=== PATIENT | female | born 1955 | race Caucasian/White ===

== ENCOUNTER → 2016-09-17 | Outpatient (CLI) | payer MEDICARE, OTHER ==
[~2016-09-17] MED LIST: AUGMENTIN400 MG PO; CARBAMAZEPINE PO; CELEBREX PO; DESYREL100 MG PO; FLEXERIL PO; HYDROCODON-ACE1 EAC9 PO; HYDROXYZINE PO; LISINOPRIL PO; LISINOPRIL-HCTZ1 T16 PO; LISINOPRIL/HCTZ PO; NAPROSYN500 MG PO; NICOTINE TRANSD21 MG EXT; NORVASC PO; NORVASC10 MG PO; PRAVACHOL PO; PRAVASTATIN PO; PREDNISONE; PRILOSEC PO; PRILOSEC20 MG PO; PROAIR HFA INH; PROAIR HFA8.5 GM; ROBITUSSIN A-C S5 ML; SEROQUEL PO; SEROQUEL400 MG PO; SPIRIVA18 MCG INH; SYMBICORT INH; TEGRETOL PO; TRAZODONE PO; VICODIN 5/1 TAB 5/50 PO; ZITHROMAX; [UNRECOGNIZED DRUG - REMARK]
--- NOTE | ~2016-09-17 | CT57 ---
[facility] A Service of [facility] & [facility] RADIOLOGY TEXT RESULTS PATIENT: VICTOR HUGO BECERRA LOCATION: [facility] : 51 UNIT #: [id number] AGE: [address]: Luca Metz MD SEX: F ORDER DR: [id number] [facility] [address] [place], [place] [address] [id number] O MR#: [id number] [facility] #: [id number] NAME: VICTOR HUGO BECERRA. : 1955 SEX: F STUDY DATE/TIME: 09/17/2016 14:08 UNIT: [facility] ROOM: STUDY DESCRIPTION: CT Chest Wo Cont Attending Physician: Luca Metz M.D. Referring Physician: Luca Metz M.D. Ordering Physician: Luca Metz M.D. Primary Care Physician: Esequiel Cagle M.D. MEDICAL IMAGING REPORT This report is preliminary unless electronic signature is present EXAM CT of the chest without contrast HISTORY Pain at the level of the lower ribs for 1 year, getting worse. Patient also reports constant cough for 3-[address] images were obtained from the thoracic inlet through the dome of the diaphragm. No intravenous contrast material administered. This CT exam was performed with one or more of the following radiation dose reduction techniques: automatic exposure control, adjustment of mA and/or kV according to patient size, and iterative reconstruction. FINDINGS This patient has a 5 mm nodule identified within the right upper lobe which has been unchanged since September of 2014 and this is benign. There is some mild ground-glass infiltrates seen within the right upper lobe which are nonspecific but could be infectious or inflammatory in nature. No additional infiltrates are seen. Patient does have stable aneurysmal dilatation of the ascending thoracic aorta measuring up to 4.2 cm, previously 4.1 cm. I do not see any new pulmonary nodules or masses. Mediastinal lymph nodes do not appear pathologically enlarged. Coronary artery calcifications. There is a small hiatal hernia. Gallbladder is surgically absent. Review of bony windows demonstrates thoracic scoliosis with convexity to the right. No aggressive osseous abnormalities are seen. Patient does have a nodule in each breast. The 1 on the right measures about a centimeter, while the 1 on the left measures about 9 mm in size. [facility] A Service of [facility] RADIOLOGY TEXT RESULTS PATIENT: VICTOR HUGO BECERRA LOCATION: [facility] : 51 UNIT #: [id number] AGE: [address]: Luca Metz MD SEX: F ORDER DR: Both of these were actually present in September of 2014 and have not significantly changed. There is some tortuosity of the thoracic aorta. IMPRESSION 1. No definite acute findings are identified to account the patient's symptomatology. 2. Stable aneurysmal dilatation of the ascending thoracic aorta measuring up to 4.2 cm. 3. Stable nodules identified within both breasts. I suspect these are probably benign given the stability since September 2014. Certainly, they would be better assessed with mammography if not previously performed. 4. Subtle ground-glass infiltrate identified within the right upper lobe. This may reflect an area of some evolving fibrotic change. No discrete infiltrate or nodule is identified, although a 5 mm nodule within the right upper lobe again is stable. Please see the body of the report for any other additional incidental findings. Dictated by... Glory Parker M.D. THIS IS AN ELECTRONICALLY VERIFIED REPORT Glory Parker M.D. at 09/18/2016 4:46 PM AFF/pcl TD: 09/17/2016 21:22 JOB #: [id number] MEDICAL IMAGING REPORT Page 1 of 1 COPY
== END | disposition home or self-care (01) ==
LOC: CCAT 13:13
DX: J18.9 Pneumonia, unspecified organism (principal); I71.2 Thoracic aortic aneurysm, without rupture; N63 Unspecified lump in breast; R91.8 Other nonspecific abnormal finding of lung field
CPT/HCPCS: 71250

== ENCOUNTER 2016-12-07 14:04 | Emergency (ER) | payer MEDICARE, OTHER ==
--- NOTE | ~2016-12-07 | CT4 ---
[facility] A Service [facility] RADIOLOGY TEXT RESULTS PATIENT: VICTOR HUGO BECERRA LOCATION: SED : 51 UNIT #: [id number] AGE: [address]: Keith Pool MD SEX: F ORDER DR: [id number] [place] [id number] E MR#: [id number] Acc #: [id number] NAME: VICTOR HUGO BECERRA. : 1955 SEX: F STUDY DATE/TIME: 12/07/2016 15:18 UNIT: SED ROOM: STUDY DESCRIPTION: CT Abd and Pelv Wo Cont Attending Physician: Keith Pool M.D. Ordering Physician: Keith Pool M.D. Primary Care Physician: Esequiel Cagle M.D. MEDICAL IMAGING REPORT This report is preliminary unless electronic signature is present. EXAM CT of the abdomen and pelvis without contrast. INDICATIONS Abdominal pain, low back pain for 3 days. Suspected kidney stone. COMPARISON 12/02/2006 TECHNIQUE Axial 3 mm images were obtained through the abdomen and pelvis without IV or oral contrast. This CT exam was performed with one or more of the following radiation dose reduction techniques: automatic exposure control, adjustment of mA and/or kV according to patient size, and iterative reconstruction. FINDINGS There is significant scoliosis in the lumbar spine. The gallbladder has been removed. The spleen, pancreas, adrenal glands and kidneys are normal. Aorta is normal in size. The right colon has been removed. The rest of the bowel appears normal. The uterus and adnexal regions are normal. The bladder is normal. IMPRESSION 1. No urinary stones or obstruction are identified. 2. Scoliosis. 3. Prior cholecystectomy. Dictated by... Domo Sheriff M.D. [facility] A Service [facility] RADIOLOGY TEXT RESULTS PATIENT: VICTOR HUGO BECERRA LOCATION: SED : 51 UNIT #: [id number] AGE: [address]: Keith Pool MD SEX: F ORDER DR: THIS IS AN ELECTRONICALLY VERIFIED REPORT Domo Sheriff M.D. at 12/08/2016 6:07 AM Annabelle TD: 12/07/2016 21:37 JOB #: [id number] MEDICAL IMAGING REPORT Page 1 of 1
[~2016-12-07 14:04] MED LIST changes: -CARBAMAZEPINE PO; -CELEBREX PO; -HYDROXYZINE PO; -LISINOPRIL/HCTZ PO; -NORVASC PO; -PRAVASTATIN PO; -PRILOSEC PO; -PROAIR HFA INH; -SEROQUEL PO; -SYMBICORT INH; -TRAZODONE PO
[2016-12-07] MEDS ORDERED: CELEBREX PO (14:26)
[2016-12-07] MEDS ORDERED: CARBAMAZEPINE PO (14:26)
[2016-12-07] MEDS ORDERED: LISINOPRIL/HCTZ PO (14:27)
[2016-12-07] MEDS ORDERED: HYDROXYZINE PO (14:27)
[2016-12-07] MEDS ORDERED: NORVASC PO (14:27)
[2016-12-07] MEDS ORDERED: PROAIR HFA INH (14:28)
[2016-12-07] MEDS ORDERED: PRAVASTATIN PO (14:28)
[2016-12-07] MEDS ORDERED: PRILOSEC PO (14:28)
[2016-12-07] MEDS ORDERED: TRAZODONE PO (14:29)
[2016-12-07] MEDS ORDERED: SEROQUEL PO (14:29)
[2016-12-07] MEDS ORDERED: SYMBICORT INH (14:29)
[2016-12-07 15:05] LABS: MICRO INDICATED? YES; URINE APPEARANCE CLEAR; URINE BILIRUBIN NEG (NEG); URINE BLOOD 2+ (NEG); URINE COLOR YELLOW; URINE GLUCOSE NEG (NORM); URINE KETONE NEG (NEG); URINE LEUKOCYTE ESTERASE TRACE (NEG); URINE NITRATE NEG (NEG); URINE PH 5.5 (5-8); URINE PROTEIN NEG (NEG); URINE SPECIFIC GRAVITY 1.015 (1.003-1.035); URINE UROBILINOGEN 0.2 MG/DL (NORM)
[2016-12-07 15:05] LABS: BASOPHIL# 0.1 X10e3 (0-0.3); BASOPHIL% 0.6 % (0-2.5); DIFF IND NO; EOSINOPHIL# 0.1 X10e3 (0-0.7); EOSINOPHIL% 1.3 % (0.0-7.0); HEMATOCRIT 41.1 % (35.0-45.0); LYMPHOCYTE# 2.9 X10e3 (1.0-3.5); LYMPHOCYTE% 32.3 % (17.0-45.0); MEAN CELL VOLUME 96.1 FL (83-96); MEAN CORPUSCULAR HEMOGLOBIN 32.8 PG (28-34); MEAN CORPUSCULAR HGB CONC 34.1 g/dL (30-36); MONOCYTE# 0.5 X10e3 (0-1.0); MONOCYTE% 5.4 % (3.0-12.0); NEUTROPHIL# 5.5 X10e3 (1.5-7.1); NEUTROPHIL% 60.4 % (40-75); PLATELET COUNT 348 X10e3 (140-420); RED BLOOD COUNT 4.27 X10e (3.90-5.30); RED CELL DISTRIBUTION WIDTH 13.5 % (11.0-15.5); WHITE BLOOD COUNT 9.1 X10e3 (4.0-10.5)
[2016-12-07 15:12] LABS: CULTURE INDICATED? NO; URINE BACTERIA NEG (NEG); URINE RBC 0-2 /[HPF] (0-2); URINE SQUAMOUS EPITHELIAL CELL OCCAS /[HPF]; URINE WBC 0-2 /[HPF] (0-5)
[2016-12-07 15:26] LABS: ALBUMIN SERUM 4.1 g/dL (3.5-5.0); ALKALINE PHOSPHATASE 63 U/L (32-92); ALT (SGPT) 15 U/L (10-40); AST (SGOT) 16 U/L (10-42); BILIRUBIN,TOTAL 0.5 mg/dL (0.2-2.0); BLOOD UREA NITROGEN 12 mg/dL (9-23); BUN/CREATININE RATIO 13.33; CALCIUM SERUM 8.8 mg/dL (8.4-10.2); CARBON DIOXIDE 32 mmol/L (22-31); CHLORIDE 99 mmol/L (100-111); CREATININE SERUM 0.9 mg/dL (0.6-1.4); GLOM FILT RATE Estimated 68.1 mL/min (>60); GLUCOSE FASTING 94 mg/dL (70-110); POTASSIUM 3.4 mmol/L (3.5-5.1); PROTEIN TOTAL SERUM 7.1 g/dL (6.0-8.3); SODIUM 137 mmol/L (135-145)
[2016-12-07 15:34] LABS: BILIRUBIN, DIRECT <0.1 mg/dL (0.0-0.2); BILIRUBIN,INDIRECT 0.4 mg/dL (0.0-0.9)
== END 2016-12-07 17:06 | disposition home or self-care (01) ==
LOC: SED 14:04
PROVIDERS: Emergency Medicine
DX: R10.84 Generalized abdominal pain (principal); M54.5 Low back pain; F17.210 Nicotine dependence, cigarettes, uncomplicated; Z88.2 Allergy status to sulfonamides; Z88.5 Allergy status to narcotic agent; Z88.1 Allergy status to other antibiotic agents; Z79.899 Other long term (current) drug therapy
CPT/HCPCS: 36415; 74176; 80048; 80076; 81003; 85025; 96361; 96374; 96375; 96376; 99284; J1170; J2405